=== PATIENT | male | born 1965 | race Caucasian/White ===

== ENCOUNTER 2018-05-31 08:43 | Inpatient (IN) ==
--- NOTE | 2018-04-30 09:12 | PAT Medication Instructions ---
Medication Instructions Date of Service April 30, 2018 Home Medications metoprolol tartate 25mg PO BID Take morning of surgery With a small sip of water, OTHERWISE NOTHING TO EAT OR DRINK AFTER MIDNIGHT: metoprolol tartate 25mg PO BID Take evening before surgery metoprolol tartate 25mg PO BID Other Notes If you have any questions please call us at [phone] or [phone] or [phone] or [phone]
--- NOTE | 2018-04-30 09:51 | Anesthesiology Consultation ---
Date of Service April 30, 2018 Assessment & Plan (1) Encounter for pre-operative examination: Chart Review Chart Review: Acceptable Risk for Surgery and Patient seen in Pre Admission Testing Teaching & Discussion Instructed NPO after midnight before surgery, except medications with 15 cc of water. Medication instructions provided according to the PAT guidelines. History Surgery Operation Date: 05/31/18 08:50 Proposed Procedures p Right Total Knee Replacement - Mamadou Stephenson DO Height/Weight Height: 6 ft Weight: 112.2 kg Allergies Allergy/AdvReac Type Severity Reaction Status Date / Time Penicillins Allergy UNSURE OF Verified 04/18/18 08:24 RXN, OCCURED A CHILD Medications Home Medications Medication Instructions Recorded Confirmed Last Taken metoprolol tartrate 25 mg PO BID 04/18/18 04/18/18 Unknown Past Medical History Medical History Hypertension Obesity Osteoarthritis Past Surgical History Surgical History History of colonoscopy Past Anesthesia History No Hx of Anesthesia Complications (GA NAIVE) and No Family Hx of Anesthesia Complications History of PONV No Motion Sickness Screening History of Motion Sickness: No Social History Smoking Status: Never smoker tobacco type: smokeless tobacco Do You Dip or Chew Tobacco: Yes (RARE USE EVERY FEW MONTHS , ADVISED TO HOLD) Hx Alcohol Use: No Alcohol Intake Frequency Comment: 0 Hx Substance Use: No substance use type: does not use Exercise / Class Metabolic Activity II 4-5 Yardwork/Stairs/Walk up hill (no SOB or CP with stairs, but slow and limited activity 2/2 knee pain) Review of Systems Pt denies any recent chest pain, shortness of breath, palpitations, fever. + productive cough with yellow phlegm, pt advised of flu symptoms and to contact surgeon and PCP if progressive or not improved within 10 days. Physical Exam Vital Signs BP: 135/88 P: 63 SPO2: 96% RA T: 98.1 R: 18 ENMT Mouth: + dental restorations (caps on front upper teeth) and + macroglossia; no chipped teeth and no loose teeth Thyromental Distance: < 3.5 Finger Breadths (3) Mallampati Class: III Neck normal visual inspection and + thick neck; neck extension not limited Respiratory normal respiratory effort Auscultation: lungs clear to auscultation bilaterally Cardiovascular Rate/Rhythm: regular rate and regular rhythm Heart Sounds: no murmur Vessels: no carotid bruit Testing Electrocardiogram Date: 04/30/18 Findings: + SB @ (53) Chest X-Ray Date: 04/30/18 Findings: + NAD Laboratory Results 04/30/18 10:09 04/30/18 10:04 Blood Type A Positive 04/30/18 10:09 Antibody Screen NEGATIVE 04/30/18 10:09 PT 10.0 Seconds (9.0-12.0) 04/30/18 10:09 INR 1.0 (0.9-1.1) 04/30/18 10:09 APTT 24.0 Seconds (21.0-31.0) 04/30/18 10:09
--- NOTE | 2018-04-30 10:28 | XRay Report ---
XR chest Pre-admission PA/Lat HISTORY: 52 years-old Male pat preoperative exam. Patient complains of acute cough for 2 days. COMPARISON: None available TECHNIQUE: AP and lateral views of the chest FINDINGS: Cardiomediastinal and hilar silhouettes are within normal limits. Mild right hemidiaphragmatic elevat ion. Retrocardiac opacity on the lateral projection suggests pulmonary vasculature. No pneumothorax, pleural effusion, focal airspace consolidation or overt pulmonary edema. Bones of the chest appear gr ossly intact. IMPRESSION: No acute process. The above report was generated using voice recognition software. It may contain grammatical, syntax o r spelling errors. Electronically signed by: Baldev Isidro M.D. 04/30/2018 10:27 AM
[2018-04-30 11:05] LABS: Basophils # (auto) 0.02 K/uL (0-0.2); Basophils % (auto) 0.2 %; Eosinophils # (auto) 0.31 K/uL (0-0.5); Eosinophils % (auto) 3.3 %; Hematocrit (blood only) 48.4 % (42-52); Immature Granulocytes # (auto) 0.05 K/uL (0.00-0.02); Immature Granulocytes % (auto) 0.5 %; Lymphocytes # (auto) 2.96 K/uL (1.2-3.4); Lymphocytes % (auto) 31.2 %; Mean Corpuscular Hgb Conc 33.1 g/dL (32-36); Mean Platelet Volume 10.3 fL (7.4-10.4); Monocytes # (auto) 1.01 K/uL (0.11-0.59); Monocytes % (auto) 10.6 %; Neutrophils # (auto) 5.14 K/uL (1.4-6.5); Neutrophils % (auto) 54.2 %; Platelet Count 302 K/uL (130-400); RDW Coefficient of Variation 13.4 % (11.5-14.5); RDW Standard Deviation 43.5 fL (36.4-46.3); White Blood Count 9.49 K/uL (4.8-10.8)
[2018-04-30 11:12] LABS: BUN Creatinine Ratio 14.3 (10-20); Calcium 9.1 mg/dl (8.5-10.1); Creatinine Clr Calc Pharmacy 87.3 ml/min; Est GFR (African American) 74.1; Est GFR (Non-African American) 63.9; Potassium 4.9 mmol/L (3.5-5.1)
[2018-04-30 11:14] LABS: Partial Thromboplastin Ratio 0.9
--- NOTE | 2018-05-30 06:36 | History & Physical Report ---
Date of Service May 30, 2018 Assessment & Plan (1) Osteoarthritis of right knee: We will proceed with a right total knee arthroplasty. Postoperatively he will be started on aspirin for DVT prophylaxis. He will be kept overnight for postop medical management. We plan to use energy physical therapy upon discharge. Present on Admission?: Yes History of Present Illness Chief Complaint: Primary osteoarthritis of the right knee Sergio is a pleasant 52-year-old male who is been dealing with medial compartment arthritis of his right knee. He does have an MRI of his knee which was advanced medial compartment arthritis and some patellofemoral arthritis. After failing extensive conservative treatment including multiple injections, he is elected to proceed with a right total knee arthroplasty. Allergies Allergy/AdvReac Type Severity Reaction Status Date / Time Penicillins Allergy UNSURE OF Verified 04/18/18 08:24 RXN, OCCURED A CHILD Home Medications Home Medications Medication Instructions Recorded Confirmed Type metoprolol tartrate 25 mg PO BID 04/18/18 04/18/18 History Past Med/Surg History Medical History Hypertension Obesity Osteoarthritis Surgical History History of colonoscopy Social History Current Living Situation: Significant Other Other Information That Helps Us Care for You: No Feels Safe at Home: Yes Safety Concerns: Feels Safe At This Time Smoking Status: Never smoker Tobacco Type: smokeless tobacco Do You Dip or Chew Tobacco: Yes (RARE USE EVERY FEW MONTHS , ADVISED TO HOLD) Hx Alcohol Use: No Hx Substance Use: No Beliefs That Will Affect Care: None Preferred Language: Kosovan Communication Ability: Effective Optician Apprentice Dispensing Required: No Review of Systems All systems reviewed & are unremarkable except as noted in HPI & below Physical Exam 2 Constitutional: WD/WN, vitals as above Eyes: PERRL, conjunctivae normal, anicteric sclerae ENMT: external ear and nose normal, oropharynx normal Neck: trachea midline, no thyromegaly Respiratory: normal respiratory effort Cardiovascular: RRR, no murmur, no edema Gastrointestinal (Abdomen): normal bowel sounds, soft, nontender, no hepatosplenomegaly Musculoskeletal: On physical examination of the right knee there is a trace effusion. There is near full range of motion and no evidence of instability. There is significant tenderness palpation along the medial and lateral joint lines and over the distal femoral condyles. Psychiatric: A+Ox3, euthymic affect Results & Data Diagnostic Findings Radiographs of the right knee demonstrate advanced osteoarthritis with joint space narrowing osteophyte formation and [id number] articulation.
[~2018-05-31 08:43] MED LIST: ACETAMINOPHEN 500 MG TAB PO SCH; BUPIVACAINE 0.5 % 5 MG/1 ML PF 10ML VIAL ONE; CEFAZOLIN 2000MG 2,000 MG/15 ML SYR IV SCH; CEFAZOLIN: ALLERGY NOTED TO ORDERED MEDICATION SCH; FAMOTIDINE 20 MG TAB PO SCH; GABAPENTIN 300 MG x 3 PO SCH; LR 500ML BOLUS, THEN 15ML/HR IV SCH; LR 60ML/HR IV SCH; ROPIVACAINE 0.5% 5 MG/ML 30 ML VIAL ONE; ROPIVACAINE 0.5% HCL/PF 150 MG, BUPIVACAINE 0.5% MPF 30 ML, EPINEPHrine 30MG/30ML (OR U... INFIL SCH; ROPIVACAINE 0.5% HCL/PF 150 MG, BUPIVACAINE 0.5% MPF 30 ML, Ketorolac (*for OR use only... INFIL SCH; TRANEXAMIC ACID 1,000 MG **IV Intra-op IV SCH; TRANEXAMIC ACID 1,000 MG **IV Pre-op IV SCH
--- NOTE | 2018-05-31 10:06 | History & Physical Bridge Note ---
Date of Service May 31, 2018 History & Physical Bridge Note I have examined the patient, reviewed the History & Physical and in the interval since the performance of the History & Physical I have noted the following changes of clinical significance: no changes noted
[2018-05-31] MEDS ORDERED: CEFAZOLIN 2,000 MG/15 ML IV PUSH IV ONE (10:29)
[2018-05-31] MEDS ORDERED: MIDAZOLAM HCL 1 MG/ML 2ML VIAL ONE ×2 (10:35→11:36)
[2018-05-31] MEDS ORDERED: PROPOFOL IV EMULSION 10 MG/ML 20 ML VIAL IV ONE ×4 (10:35→13:02)
[2018-05-31] MEDS ORDERED: fentaNYL citrate 100 MCG/2 ML VIAL ONE (10:35)
[2018-05-31] MEDS ORDERED: ORTHO JOINT ANESTHETIC ONE (10:38)
[2018-05-31] MEDS ORDERED: POVIDONE-IODINE OP SOLN 30 ML BTL ONE (10:38)
--- NOTE | 2018-05-31 13:25 | Operative Report ---
Post Operative Report Pre & Post Diagnosis Operation Date: 05/31/18 11:30 Pre-Op Diagnosis: Right Knee Degenerative Joint Disease Post-Op Diagnosis: Right Knee Degenerative Joint Disease Procedure Operation Date: 05/31/18 11:30 Actual Procedures p Right Total Knee Replacement(Right) - Mamadou Stephenson DO Surgeon Mamadou Stephenson DO [employer] Mamadou Banks PAC Estimated Blood Loss 20 Findings Consistent with Post-Op Diagnosis Specimens Right tibial and femoral bone Complications none Disposition Disposition: Recovery Room Chinmay Hill is a pleasant 52-year-old male who presented my office with complaints of chronic increasing right knee pain. X-rays and clinical examination were diagnostic for primary osteoarthritis of the right knee. After failing extensive conservative treatment, he elected to proceed with a right total knee arthroplasty. Description of Procedure Implants used: I used a [employer] Vanguard total knee arthroplasty system with a size 70 femur, 75 tibia, 34 patella, and a size 10 PS polyethylene bearing. All components were cemented in place with Palacos G cement. The patient arrived [facility] for the above procedure. There were seen in the preoperative holding area and the operative extremity was identified and signed. There were given a preoperative antibiotic, a spinal anesthetic and an adductor nerve block. There were taken back to the operating room and laid on the table in supine position. There were given basic sedation. The operative knee was then prepped and draped in sterile fashion. A timeout was done, and the patient and the operative extremity was properly identified. A midline incision was made directly over the patella. Dissection was taken down to the extensor mechanism. A subvastus arthrotomy was used. The medial retinaculum was released and the fat pad was mostly left intact. The knee was flexed and the ACL, PCL, and meniscus were removed. A drill was sent down the center of the femoral canal followed by an intramedullary ludwig. Off that ludwig a distal femoral cutting block was placed. 9 mm was resected off the distal femur at 5 of valgus. A posterior referencing AP sizing guide was then placed on the distal femur. The femur measured to be a size 70. 2 drill holes were placed in 3 of external rotation. A 4-in-1 cutting block was then impacted into place. Anterior posterior and chamfer cuts were then made. The posterior stabilizing box guide was then impacted into place and the box was resected for the posterior stabilizing component. The proximal tibia was then exposed. A drill was sent down the center of the tibial canal followed by an intramedullary ludwig. Off that ludwig a proximal tibial resection guide was placed. The proximal tibia was then resected. The tibia measured to be a size 75. The tibial plate was then placed in the appropriate rotation and the tibia was punched. The posterior aspect of the knee was then opened up and any additional meniscus fragments and osteophytes were removed. Trial components were then placed. I used a size 10 PS polyethylene insert. The knee was brought through a full range of motion and felt to be stable. The patella was then everted and 8 mm was resected off the posterior aspect of the patella. The patella measured to be a size 34. 3 peg holes were then drilled. A trial patella was placed. The knee was once again brought through a full range of motion and felt to be stable. Trial components were then removed. The surrounding soft tissues were injected with 100 cc of an orthopedic pain control cocktail. All components were then cemented into place with Palacos G cement. The final polyethylene insert was then snapped into place and the anterior bar was locked. Once cement was dry the tourniquet was deflated. Hemostasis was obtained. A dilute betadyne lavage was then done for 3 minutes. The joint was then irrigated with normal saline solution. The subvastus arthrotomy was then closed with #1 Vicryl suture. The skin was closed with 2-0 Vicryl, 3-0V lock suture, and pankaj. A soft compressive dressing was placed. The patient was then transferred to a hospital bed and taken to the postanesthesia care unit in stable condition. They tolerated the procedure well. I attest to the content of the Intraoperative Record and any orders documented therein. Any exceptions are noted below.
--- NOTE | 2018-05-31 14:27 | Anesthesiology Progress Note ---
Date of Service May 31, 2018 Anesthesia Post Procedure Vital Signs Vital Signs: Temp Pulse Pulse Resp BP Pulse Ox 05/31/18 14:20 62 16 125/81 98 05/31/18 14:10 70 18 124/76 95 05/31/18 14:00 74 18 122/83 98 05/31/18 13:54 97.5 F L 83 18 107/77 96 05/31/18 09:44 97.9 F 59 L 18 151/91 H 98 Notes Mental Status: alert / awake / arousable and participated in evaluation Patient Amnestic to Procedure: Yes Nausea / Vomiting: adequately controlled Pain: adequately controlled Airway Patency, RR, SpO2: stable & adequate BP & HR: stable & adequate Hydration State: stable & adequate Neuraxial Anesthesia: was administered and sensory block is resolving Anesthetic Complications: no major complications apparent and Pt Satisfied with anesthetic care
--- NOTE | 2018-05-31 14:38 | XRay Report ---
XR knee RT 2V routine HISTORY: 52 years-old Male Surgical Post Op right knee total joint arthroplasty. History of degenera tive joint disease. COMPARISON: Right knee radiographs 04/30/2018 TECHNIQUE: 2 views of the right knee FINDINGS: Right knee total joint arthroplasty and patella resurfacing. Alignment is satisfactory without acute fracture. Anterior midline skin pankaj are noted along with expected postsurgical soft tissue swelli ng and deep tissue air. No retained foreign body identified. IMPRESSION: Right knee total joint arthroplasty and patella resurfacing with satisfactory alignment. The above report was generated using voice recognition software. It may contain grammatical, syntax o r spelling errors. Electronically signed by: Baldev Isidro M.D. 05/31/2018 2:37 PM
[2018-05-31] MEDS ORDERED: MAGNESIUM HYDROXIDE SUSP 30 ML UDC PO PRN (15:12)
[2018-05-31] MEDS ORDERED: MoRPHine SULFATE 2 MG/ML CARP IV PRN (15:12)
[2018-05-31] MEDS ORDERED: BISACODYL 10 MG SUPP PR PRN (15:12)
[2018-05-31] MEDS ORDERED: METOCLOPRAMIDE HCL INJ 5 MG/ML 2 ML VIAL IV PRN (15:12)
[2018-05-31] MEDS ORDERED: ONDANSETRON INJ 2 MG/ML 2 ML VIAL IV PRN (15:12)
[2018-05-31] MEDS: ACETAMINOPHEN 500 MG TAB PO SCH (19:24)
[2018-05-31] MEDS: KETOROLAC 30 MG/ML VIAL IV SCH (19:25)
[2018-05-31] MEDS: SODIUM CHLORIDE 0.9% 1000ML 1,000 ML IV SCH (19:26)
[2018-05-31] MEDS: CEFAZOLIN 2000MG 2,000 MG/15 ML SYR IV SCH (19:58)
[2018-05-31] MEDS: DOCUSATE SODIUM 100 MG CAP PO SCH (19:59)
[2018-05-31] MEDS: ASPIRIN 81 MG ECTAB PO SCH (19:59)
[2018-05-31] MEDS ORDERED: SENNA 8.6 MG TAB PO SCH (21:00)
[2018-05-31] MEDS: OXYCODONE HCL IR 5 MG TAB (IMMEDIATE RELEASE) PO PRN (21:30)
[2018-05-31] MEDS ORDERED: Nursing to Pharmacy Communication ONE (21:32)
[2018-05-31] MEDS: METOPROLOL TARTRATE 25 MG TAB PO SCH (21:37)
[2018-06-01] MEDS: ACETAMINOPHEN 500 MG TAB PO SCH ×2 (01:00→05:29)
[2018-06-01] MEDS: KETOROLAC 30 MG/ML VIAL IV SCH ×2 (01:00→08:29)
[2018-06-01] MEDS: CEFAZOLIN 2000MG 2,000 MG/15 ML SYR IV SCH (03:34)
[2018-06-01] MEDS: OXYCODONE HCL IR 5 MG TAB (IMMEDIATE RELEASE) PO PRN ×2 (03:38→09:48)
[2018-06-01] MEDS ORDERED: Nursing to Pharmacy Communication ONE (03:40)
[2018-06-01] MEDS: SODIUM CHLORIDE 0.9% 1000ML 1,000 ML IV SCH (03:43)
[2018-06-01 06:42] LABS: Hematocrit (blood only) 41.9 % (42-52); Hemoglobin 13.8 g/dL (14.0-18.0); Mean Corpuscular Hgb Conc 32.9 g/dL (32-36); Mean Corpuscular Volume 86.6 fL (80-100); Platelet Count 258 K/uL (130-400); RDW Coefficient of Variation 13.2 % (11.5-14.5); RDW Standard Deviation 42.4 fL (36.4-46.3); Red Blood Count 4.84 M/uL (4.7-6.1); White Blood Count 13.85 K/uL (4.8-10.8)
[2018-06-01 07:26] LABS: BUN Creatinine Ratio 15.6 (10-20); Calcium 8.4 mg/dl (8.5-10.1); Creatinine Clr Calc Pharmacy 87.5 ml/min; Est GFR (African American) 74.8; Est GFR (Non-African American) 64.5; Potassium 4.4 mmol/L (3.5-5.1)
[2018-06-01] MEDS ORDERED: MULTIVITAMIN TAB PO SCH (09:00)
--- NOTE | 2018-06-01 09:21 | Orthopedic Progress Note ---
Date of Service June 01, 2018 Assessment & Plan (1) Osteoarthritis of right knee: Overall he is doing very well. Is not having much pain in the right knee. He is able to walk without much difficulty. He will be seen by physical therapy today. We will discharge him to home later this morning with [facility] physical therapy. He will follow-up with orthopedics in 2 weeks. Present on Admission?: Yes Subjective Sergio was seen and examined at bedside this morning. Overall he is doing very well. He is not having too much pain in the right knee. He is been up and ambulating. He has no complaints. Physical Exam 2 Vital Signs (Past 24 Hours): Last Vital Signs Temp 36.5 C 06/01/18 06:55 Pulse 64 06/01/18 06:55 Resp 16 06/01/18 06:55 BP 143/89 H 06/01/18 06:55 Pulse Ox 93 06/01/18 06:55 Musculoskeletal: On physical examination of the right knee, the dressing is clean and dry. His legs out in full extension. He is active dorsiflexion and plantarflexion of his right ankle. Sensation is intact. Results & Data Laboratory Results H & H 04/30/18 06/01/18 Range/Units 10:09 06:12 Hgb 16.0 13.8 L (14.0-18.0) g/dL Hct 48.4 41.9 L (42-52) % Coagulation 04/30/18 Range/Units 10:09 INR 1.0 (0.9-1.1) Diagnostic Findings Postoperative x-rays of the right knee show the prosthesis to be in anatomic alignment without any evidence of fracture, dislocation, or loosening.
--- NOTE | 2018-06-01 09:22 | Discharge Summary ---
Date of Service June 01, 2018 Admission HPI Per Admitting Provider Sergio is a pleasant 52-year-old male who is been dealing with medial compartment arthritis of his right knee. He does have an MRI of his knee which was advanced medial compartment arthritis and some patellofemoral arthritis. After failing extensive conservative treatment including multiple injections, he is elected to proceed with a right total knee arthroplasty. Specialty Data Orthopedic H & H 04/30/18 06/01/18 Range/Units 10:09 06:12 Hgb 16.0 13.8 L (14.0-18.0) g/dL Hct 48.4 41.9 L (42-52) % Coagulation 04/30/18 Range/Units 10:09 INR 1.0 (0.9-1.1) Discharge Data Consultations 05/31/18 15:12 Consult Case Management - Discharge Planning Routine Procedures Performed Operation Date: 05/31/18 11:30 Actual Procedures p Right Total Knee Replacement(Right) - Mamadou Stephenson DO Hospital Course (1) Osteoarthritis of right knee: On May 31, 2018 Sergio arrived at [facility] and underwent a right total knee arthroplasty without complication. He had a spinal anesthetic and a right adductor nerve block. Postoperatively he was started on aspirin for DVT prophylaxis and discharged to general orthopedic floors. His hospital course was uneventful. On postop day #1 his H&H was stable and his pain was well controlled. He was able to participate well with physical therapy. He was then discharged to home with [facility] physical therapy. He will follow-up with orthopedics in 2 weeks. Discharge Instructions Home Medications Medication Instructions Recorded Confirmed metoprolol tartrate 25 mg PO BID 04/18/18 05/31/18 Previous Rx's Medication Instructions Recorded aspirin [Ecotrin Low Strength] 81 mg PO BID #84 tab 06/01/18 oxycodone 5 - 10 mg PO Q4H PRN #40 tab 06/01/18
[2018-06-01] MEDS: ASPIRIN 81 MG ECTAB PO SCH (09:47)
[2018-06-01] MEDS: DOCUSATE SODIUM 100 MG CAP PO SCH (09:47)
[2018-06-01] MEDS: METOPROLOL TARTRATE 25 MG TAB PO SCH (09:48)
== END 2018-06-01 10:47 | disposition home or self-care (01) | DRG 470 ==
LOC: ASU 08:43 → 3E 13:28